=== PATIENT | male | born 1970 | race Caucasian/White ===

== ENCOUNTER 2017-12-12 05:56 | Outpatient (CLI) | payer SELFPAY ==
[~2017-12-12] VITALS: Ht 182.9 cm; Wt 117.9 kg
[2017-12-12] MEDS ORDERED: LEVO50TA6 PO (14:20)
[2017-12-12] MEDS ORDERED: LORA-405 PO (14:20)
[2017-12-12] MEDS ORDERED: HYDR-756 PO (14:20)
== END 2017-12-12 14:22 ==
LOC: PREOP 05:56
PROVIDERS: ATTEND Surgery
DX: Z01.818 Encounter for other preprocedural examination (principal); K92.1 Melena; K21.9 Gastro-esophageal reflux disease without esophagitis

== ENCOUNTER 2017-12-17 07:24 | Day surgery (SDC) | payer SELFPAY ==
[~2017-12-17] VITALS: Ht 182.9 cm; Wt 117.9 kg
[~2017-12-17 07:24] MED LIST: HYDR-756 PO; LEVO50TA6 PO; LORA-405 PO
[2017-12-17] MEDS ORDERED: LACTATED RINGERS 1,000 ML IV STA (07:35)
[2017-12-17 07:44] VITALS: BP 136/92
[2017-12-17] MEDS ORDERED: HURRICAINE EXT TUBE (BENZOCAINE) XX PRN (07:45)
[2017-12-17] MEDS ORDERED: PROPOFOL INJECTION 50 ML IV ONE (07:55)
[2017-12-17] MEDS ORDERED: MIDAZOLAM 2 MG/2 ML (VERSED) VIAL ONE (07:55)
--- NOTE | 2017-12-17 08:23 | Progress Note-Pre Operative ---
Pre-Operative Progress Note H&P Reviewed The H&P was reviewed, patient examined and no changes noted. Date Seen by Provider: Dec 17, 2017 Time Seen by Provider: 08:22 Date H&P Reviewed: Dec 17, 2017 Time H&P Reviewed: 08:22 Pre-Operative Diagnosis: family history colon cancer, bright red blood per rectum, reflux gastritis EBONI ARELLANO DO Dec 17, 2017 08:23
[2017-12-17] MEDS ORDERED: MIDAZOLAM 5 MG/5 ML (VERSED) VIAL ONE (09:43)
[2017-12-17] MEDS ORDERED: MIDAZOLAM 5 MG/5 ML (VERSED) VIAL IVP PRN (09:45)
[2017-12-17] MEDS ORDERED: proPOfol 200 MG/20 ML (DIPRIVAN) VIAL IV ONE (09:50)
[2017-12-17] MEDS ORDERED: RT-ALBUTEROL SULF 2.5 MG/3 ML PRE-MIX VIAL ONE (09:55)
--- NOTE | 2017-12-17 10:43 | Progress Note-Post Operative ---
Post-Operative Progess Note Surgeon (s)/Concrete Craftsman (s) Surgeon EBONI ARELLANO DO Concrete Craftsman: na Pre-Operative Diagnosis family history colon cancer, bright red blood per rectum, reflux gastritis Post-Operative Diagnosis duodenitis, gastritis, hiatal hernia, small antral ulcer, short segment lopez's descending colon polyp and rectal polyp Procedure & Operative Findings Date of Procedure 12/17/17 Procedure Performed/Findings egd c biopsies and colonoscopy with hot bx polypectomy x 2 Anesthesia Type per wool brusher Estimated Blood Loss Estimated blood loss (mL): none Specimens/Packing Specimens Removed antrum body and ge colon polyps EBONI ARELLANO DO Dec 17, 2017 10:43
[2017-12-17] MEDS ORDERED: PANT40TA2 PO ×2 (10:44→10:45)
--- NOTE | 2017-12-17 10:45 | Discharge Inst-Simple/Standard ---
Discharge Inst-Standard Discharge Medications New, Converted or Re-Newed RX: Transmitted to Pharmacy Patient Instructions/Follow Up Plan of Care/Instructions/FU: 2 weeks [place] Activity as Tolerated: Yes Discharge Diet: Regular Diet EBONI ARELLANO DO Dec 17, 2017 10:45
[2017-12-17 11:00] VITALS: BP 111/79
[2017-12-17 11:25] VITALS: BP 115/82
[2017-12-17 11:43] VITALS: BP 115/82
[2017-12-17] MEDS ORDERED: HURRICAINE EXT TUBE (BENZOCAINE) ONE (12:15)
--- NOTE | 2017-12-17 15:22 | OPERATIVE REPORT ---
DATE OF SERVICE: 12/17/2017 PREOPERATIVE DIAGNOSES: Family history of colon cancer, bright red blood per rectum, reflux gastritis. POSTOPERATIVE DIAGNOSES: Duodenitis, gastritis, hiatal hernia, small antral ulcer, short segment Panda's, descending colon polyp and rectal polyp. PROCEDURE: EGD with biopsies and colonoscopy with hot biopsy polypectomy x2. SURGEON: Eboni Cain DO ANESTHESIA: Per ROOMING HOUSE OPERATOR. ESTIMATED BLOOD LOSS: None. SPECIMENS: Antrum, body, GE and colon polyps. INDICATIONS: The patient is a 47-year-old male with family history of colon cancer, bright red blood per rectum and reflux gastritis. He was explained risks and benefits of procedure and wished to proceed with procedure. Consent was signed in the chart. DESCRIPTION OF PROCEDURE: The patient was taken to the endoscopy suite, placed in left lateral recumbent position. Timeout was performed. The scope was inserted in mouth, down the esophagus, stomach and into the duodenum. The duodenum had a significant erythematous changes present. The patient began to desaturate therefore, the scope had to be removed. Once adequate oxygenation occurred again, the scope was then reinserted in mouth, down the esophagus and into the stomach and into the duodenum. There were no polyps, masses or ulcerations visualized within the duodenum. There was significant erythematous changes thought consistent with duodenitis. The scope was retracted back into the stomach, where biopsy of the antrum was obtained. The stomach had slight erythematous changes diffusely. Biopsy of the antrum and GE junction were obtained. In the antrum, there is a small ulceration too that was present a small and biopsy had been obtained too. The scope was retroflexed noting a small hiatal hernia. No other pathology noted. The scope was then slowly withdrawn back into the GE junction where there are some erythematous changes and may be the appearance of a short segment of Panda's. Biopsies were obtained. Scope was then slowly retracted back noting no other pathology. Digital rectal exam was performed. A small external hemorrhoid present. Digital rectal exam, no palpable polyps, masses or ulcerations. The scope was inserted into the rectum and advanced all the way to the cecum with minimal difficulty. Prep was adequate. Scope was then slowly retracted back. There were no polyps, masses or ulcerations within the cecum, ascending, transverse colon. Within the descending colon, a small polyp was present, which hot biopsy polypectomy was performed. Scope was continued slowly retracted back into the sigmoid. There were no polyps, mass or ulcerations. In the rectum, another small polyp was present, which hot biopsy polypectomy was performed. Scope was also retroflexed noting no other pathology. Scope was returned to its normal position, slowly withdrawn until completely removed. RECOMMENDATIONS: The patient will follow up in 2 weeks. The patient will be started on Protonix 40 mg daily. We would recommend repeat colonoscopy in 3 years for reevaluation. If he has any of this symptoms before that I would reevaluate at that time. Job ID: [id number] DocumentID: [id number] Dictated Date: 12/17/2017 10:43:51 Contract Officer Date: 12/17/2017 15:21:56 Dictated By: EBONI CAIN DO
--- OUTSIDE RECORDS SUMMARY | 2017-12-19 13:23 | XMS REPORT ---
Author Author ABHINAV MICHEL Organization [employer] Address Unknown Phone Unavailable Care Team Providers Care Dietary Aide Name Role Phone ABHINAV MICHEL CP Unavailable Allergies No Known Allergies Problems Problem Type Condition Code Onset Dates Condition Status Problem Acute suppurative otitis media without spontaneous rupture of eardrum 382.00 Active Problem Unspecified dermatitis due to sun 692.70 Active Problem Other malaise and fatigue 780.79 Active Problem Acquired hypothyroidism E03.9 Active Problem Anxiety F41.9 Active Problem Chronic pain syndrome G89.4 Active Problem Health examination of defined subpopulation V70.5 Active Problem Dizziness and giddiness 780.4 Active Problem Hypertension 401.9 Active Problem Need for prophylactic vaccination and inoculation, Influenza V04.81 Active Medications No Known Medications Results No Known Results Summary Purpose [employer] Submission
--- OUTSIDE RECORDS SUMMARY | 2017-12-19 13:23 | XMS REPORT ---
Author Author ABHINAV MICHEL [facility] Address [address] [place] [address] Care Team Providers Care Head Cd Reactor Operator Name Role Phone MARILU ABHINAV Unavailable PROBLEMS Type Condition ICD9-CM Code [id number] Code Onset Dates Condition Status SNOMED Code Problem Acute suppurative otitis media without spontaneous rupture of eardrum 382.00 Active 59110357 Problem Unspecified dermatitis due to sun 692.70 Active 73396017 Problem Other malaise and fatigue 780.79 Active 364602327 Assessment Acquired hypothyroidism E03.9 Jul, Active 614702486 Problem Acquired hypothyroidism E03.9 Active 145280714 Problem Anxiety F41.9 Active 06749964 Problem Health examination of defined subpopulation V70.5 Active 380652241 Problem Dizziness and giddiness 780.4 Active 274314163 Problem Hypertension 401.9 Active 13946814 Problem Need for prophylactic vaccination and inoculation, Influenza V04.81 Active 509317290 ALLERGIES Unknown Allergies SOCIAL HISTORY No smoking Hx information available PLAN OF CARE VITAL SIGNS MEDICATIONS Unknown Medications RESULTS No Results PROCEDURES No Known procedures IMMUNIZATIONS No Known Immunizations
--- OUTSIDE RECORDS SUMMARY | 2017-12-19 13:24 | XMS REPORT ---
Author Author JULIUS MICHAEL Organization [facility] Address [address] [place] [address] Care Team Providers Care File Clerk Data Entry Name Role Phone JULIUS MICHAEL Unavailable PROBLEMS Type Condition ICD9-CM Code [id number] Code Onset Dates Condition Status SNOMED Code Problem Hypothyroidism (acquired) E03.9 Active 80663836 Problem Chronic pain syndrome G89.4 Active 316550555 Problem Anxiety F41.9 Active 46064212 Problem Acquired hypothyroidism E03.9 Active 357229770 ALLERGIES Substance Reaction Event Type Date Status N.K.D.A. Unknown Non Drug Allergy Nov, Unknown SOCIAL HISTORY No smoking Hx information available PLAN OF CARE Activity Details Follow Up prn Reason:te VITAL SIGNS MEDICATIONS Medication Instructions Dosage Frequency Start Date End Date Duration Status [place] 5-325 MG Orally every 6 hrs 1 tablet as needed 6h Nov, 28 days Active Ativan 0.5 MG Orally every 6 hrs 1 tablet as needed 6h Aug, 28 days Active Levothyroxine Sodium 25 MCG Orally Once a day 1 tablet on an empty stomach in the morning 24h 30 Active Cetirizine HCl 10 mg Orally Once a day 1 tablet 24h Jun, Dec, 30 day(s) Active RESULTS No Results PROCEDURES Procedure Date Ordered Related Diagnosis Body Site INTRAORL-PERIAPICAL 1 FILM 72792 Nov 12, 2016 INTRAORL-PERIAPICAL EA ADD FILM Nov 12, 2016 INTRAORL-PERIAPICAL EA ADD FILM Nov 12, 2016 INTRAORL-PERIAPICAL EA ADD FILM Nov 12, 2016 PANORAMIC FILM SEE ALSO CODE 41662 Nov 12, 2016 BITEWINGS - FOUR FILMS Nov 12, 2016 IMMUNIZATIONS No Known Immunizations
--- OUTSIDE RECORDS SUMMARY | 2017-12-19 13:24 | XMS REPORT ---
Author Author ABHINAV MICHEL Organization [employer] Address Unknown Phone Unavailable Care Team Providers Care Atomic Process Engineer Name Role Phone ABHINAV MICHEL CP Unavailable Allergies No Known Allergies Problems Problem Type Condition Code Onset Dates Condition Status Problem Need for prophylactic vaccination and inoculation, Influenza V04.81 Active Problem Health examination of defined subpopulation V70.5 Active Problem Hypertension 401.9 Active Problem Other malaise and fatigue 780.79 Active Problem Acute suppurative otitis media without spontaneous rupture of eardrum 382.00 Active Problem Dizziness and giddiness 780.4 Active Problem Unspecified dermatitis due to sun 692.70 Active Medications No Known Medications Results No Known Results Summary Purpose [employer] Submission
--- OUTSIDE RECORDS SUMMARY | 2017-12-19 13:24 | XMS REPORT ---
Author Author CHRIS Magallanes [facility] Address Unknown Care Team Providers Care Soaker Helper Name Role Phone CHRIS Magallanes Unavailable PROBLEMS Type Condition ICD9-CM Code [id number] Code Onset Dates Condition Status SNOMED Code Problem Hypothyroidism (acquired) E03.9 Active 19285343 Problem Chronic pain syndrome G89.4 Active 204568191 Problem Acquired hypothyroidism E03.9 Active 932624923 Problem Anxiety F41.9 Active 72216289 ALLERGIES Substance Reaction Event Type Date Status N.K.D.A. Unknown Non Drug Allergy Sep, Unknown SOCIAL HISTORY No smoking Hx information available PLAN OF CARE Activity Details Follow Up prn Reason:paolo/hygiene VITAL SIGNS Height 71 in 2016-09-26 Blood pressure systolic 129 mmHg 2016-09-26 Blood pressure diastolic 80 mmHg 2016-09-26 MEDICATIONS Medication Instructions Dosage Frequency Start Date End Date Duration Status Ativan 0.5 MG Orally every 6 hrs 1 tablet as needed 6h 13 Aug, 2016 Active [place] 5-325 MG Orally every 6 hrs 1 tablet as needed 6h 12 Jul, 2016 Active Cetirizine HCl 10 mg Orally Once a day 1 tablet 24h Jun, 4 Dec, 2016 30 day(s) Active Levothyroxine Sodium 25 MCG Orally Once a day 1 tablet on an empty stomach in the morning 24h 30 Active RESULTS No Results PROCEDURES Procedure Date Ordered Related Diagnosis Body Site LTD ORAL EVALUATION - PROBLEM FOCUS Sep 26, 2016 INTRAORL-PERIAPICAL 1 FILM 04494 Sep 26, 2016 EXTRAC ERUPTED TOOTH/EXPOSED ROOT Sep 26, 2016 IMMUNIZATIONS No Known Immunizations
--- OUTSIDE RECORDS SUMMARY | 2017-12-19 13:24 | XMS REPORT ---
Author Author ABHINAV MICHEL [facility] [employer] Address Unknown Phone Unavailable Care Team Providers Care Tile Sorter Name Role Phone ABHINAV MICHEL CP Unavailable Allergies, Adverse Reactions, Alerts Substance Reaction Event Type N.K.D.A. Info Not Available Non Drug Allergy Problems Problem Type Condition Code Onset Dates Condition Status Assessment Encounter for pre-employment examination Z02.1 Active Problem Need for prophylactic vaccination and inoculation, Influenza V04.81 Active Problem Health examination of defined subpopulation V70.5 Active Problem Hypertension 401.9 Active Problem Other malaise and fatigue 780.79 Active Problem Acute suppurative otitis media without spontaneous rupture of eardrum 382.00 Active Problem Dizziness and giddiness 780.4 Active Problem Unspecified dermatitis due to sun 692.70 Active Medications Medication Code System Code Instructions Start Date End Date Status Dosage Diclofenac Sodium [facility] [address]-21 75 MG Orally Twice a day Jul 13, 2015 1 tablet Omeprazole [facility] [address]-58 20 MG Orally Once a day Sep 02, 2015 1 capsule Lexapro [facility] 31063467450 10 MG Orally Once a day 1 tablet Procedures Procedure Coding System Code Date Office Visit, Est Pt., Level 3 CPT-4 42756 Sep 12, 2015 URINALYSIS, AUTO, W/O SCOPE CPT-4 46034 Sep 12, 2015 Vital Signs Date/Time: Sep 12, 2015 Temperature 98.3 F Weight 260.2 lbs Height 71 in BMI 36.29 Index Blood Pressure Diastolic 84 mmHg Blood Pressure Systolic 122 mmHg Cardiac Monitoring Heart Rate 104 bpm Results Name Result Date Reference Range Unit Abnormality Flag UA LONG DIP (IN HOUSE) Summary Purpose [employer]ClinicalWorks Submission
--- OUTSIDE RECORDS SUMMARY | 2017-12-19 13:24 | XMS REPORT ---
Author Author ABHINAV MICHEL [facility] Address [facility] [place] [address] Care Team Providers Care Engineer Exhauster Name Role Phone ABHINAV MICHEL Unavailable PROBLEMS Type Condition ICD9-CM Code EOK29-VW Code Onset Dates Condition Status SNOMED Code Problem Hypothyroidism (acquired) E03.9 Active 27652150 Problem Chronic pain syndrome G89.4 Active 913621208 Problem Anxiety F41.9 Active 09540081 Problem Acquired hypothyroidism E03.9 Active 046483105 ALLERGIES Unknown Allergies SOCIAL HISTORY No smoking Hx information available PLAN OF CARE VITAL SIGNS MEDICATIONS Medication Instructions Dosage Frequency Start Date End Date Duration Status [place] 5-325 MG Orally every 6 hrs 1 tablet as needed 6h Nov, 28 days Active Ativan 0.5 MG Orally every 6 hrs 1 tablet as needed 6h Aug, 28 days Active RESULTS No Results PROCEDURES No Known procedures IMMUNIZATIONS No Known Immunizations
--- OUTSIDE RECORDS SUMMARY | 2017-12-19 13:24 | XMS REPORT ---
Author Author ABHINAV MICHEL [facility] e[employer] Address Unknown Phone Unavailable Care Team Providers Care Environmental Consultant Name Role Phone ABHINAV MICHEL CP Unavailable Allergies, Adverse Reactions, Alerts Substance Reaction Event Type N.K.D.A. Info Not Available Non Drug Allergy Problems Problem Type Condition Code Onset Dates Condition Status Assessment Acquired hypothyroidism E03.9 Active Problem Other malaise and fatigue 780.79 Active Problem Acute suppurative otitis media without spontaneous rupture of eardrum 382.00 Active Assessment Encounter for immunization Z23 Active Assessment Anxiety F41.9 Active Problem Anxiety F41.9 Active Problem Hypertension 401.9 Active Problem Acquired hypothyroidism E03.9 Active Problem Dizziness and giddiness 780.4 Active Problem Unspecified dermatitis due to sun 692.70 Active Problem Need for prophylactic vaccination and inoculation, Influenza V04.81 Active Problem Health examination of defined subpopulation V70.5 Active Medications Medication Code System Code Instructions Start Date End Date Status Dosage [place] [facility] [address]-10 5-325 MG Orally every 6 hrs Jul 16, 2016 1 tablet as needed Cetirizine HCl [facility] [address]-37 10 mg Orally Once a day Jun 11, 2016 Dec 08, 2016 1 tablet Ativan [facility] [address]-04 0.5 MG Orally every 6 hrs Aug 16, 2016 1 tablet as needed Levothyroxine Sodium [facility] [address]-21 25 MCG Orally Once a day Jul 16, 2016 1 tablet on an empty stomach in the morning Procedures Procedure Coding System Code Date FLUZONE HIGH DOSE 65 AND UP 2015 CPT-4 27461 Aug 16, 2016 SINGLE IMMUNIZATION ADMIN CPT-4 27787 Aug 16, 2016 Office Visit, Est Pt., Level 3 CPT-4 41012 Aug 16, 2016 VENIPUNCT, ROUTINE* CPT-4 60830 Aug 16, 2016 ASSAY THYROID STIM HORMONE CPT-4 15034 Aug 16, 2016 Vital Signs Date/Time: Aug 16, 2016 Cardiac Monitoring Heart Rate 70 bpm Weight 248.6 lbs Height 71 in BMI 34.67 Index Blood Pressure Diastolic 86 mmHg Blood Pressure Systolic 120 mmHg Results Name Result Date Reference Range Unit Abnormality Flag ROUTINE VENIPUNCTURE Immunizations Vaccine Administration Date FLUZONE HIGH DOSE 65 AND UP 2015Aug 16, 2016 Summary Purpose eClinicalWorks Submission
--- OUTSIDE RECORDS SUMMARY | 2017-12-19 13:24 | XMS REPORT ---
Author Author ABHINAV MICHEL Organization [employer] Address Unknown Phone Unavailable Care Team Providers Care Ichthyology Teacher Name Role Phone ABHINAV MICHEL CP Unavailable Allergies No Known Allergies Problems Problem Type Condition Code Onset Dates Condition Status Problem Acute suppurative otitis media without spontaneous rupture of eardrum 382.00 Active Problem Unspecified dermatitis due to sun 692.70 Active Problem Other malaise and fatigue 780.79 Active Assessment Anxiety F41.9 Active Assessment Chronic pain syndrome G89.4 Active Problem Acquired hypothyroidism E03.9 Active Problem Anxiety F41.9 Active Problem Chronic pain syndrome G89.4 Active Problem Health examination of defined subpopulation V70.5 Active Problem Dizziness and giddiness 780.4 Active Problem Hypertension 401.9 Active Problem Need for prophylactic vaccination and inoculation, Influenza V04.81 Active Medications Medication Code System Code Instructions Start Date End Date Status Dosage Ativan [facility] [address]-87 0.5 MG Orally every 6 hrs Aug 16, 2016 1 tablet as needed [place] [facility] [address]-76 5-325 MG Orally every 6 hrs Jul 16, 2016 1 tablet as needed Cetirizine HCl [facility] [address]-94 10 mg Orally Once a day Jun 11, 2016 Dec 08, 2016 1 tablet Levothyroxine Sodium [facility] 87870796549 25 MCG Orally Once a day 1 tablet on an empty stomach in the morning Results No Known Results Summary Purpose eClinicalWorks Submission
--- OUTSIDE RECORDS SUMMARY | 2017-12-19 13:24 | XMS REPORT ---
Author Author ABHINAV MICHEL [facility] Address [address] [place] [address] Care Team Providers Care Skidder Loader Name Role Phone ABHINAV MICHEL Unavailable PROBLEMS Type Condition ICD9-CM Code FLB87-HL Code Onset Dates Condition Status SNOMED Code Problem Hypothyroidism (acquired) E03.9 Active 65938749 Problem Chronic pain syndrome G89.4 Active 043444184 Problem Anxiety F41.9 Active 72843474 Problem Acquired hypothyroidism E03.9 Active 591951842 ALLERGIES No Known Allergies SOCIAL HISTORY Never Assessed PLAN OF CARE VITAL SIGNS Height 71 in 2017-01-04 Weight 254.5 lbs 2017-01-04 Temperature 98.0 degrees Fahrenheit 2017-01-04 Heart Rate 80 bpm 2017-01-04 Respiratory Rate 20 2017-01-04 BMI 35.49 kg/m2 2017-01-04 Blood pressure systolic 122 mmHg 2017-01-04 Blood pressure diastolic 78 mmHg 2017-01-04 MEDICATIONS Medication Instructions Dosage Frequency Start Date End Date Duration Status Ativan 1 MG Orally every 6 hrs 1 tablet as needed 6h Aug, 28 days Active [place] 5-325 MG Orally every 6 hrs 1 tablet as needed 6h Jan, 28 days Active Levothyroxine Sodium 25 MCG Orally Once a day 1 tablet on an empty stomach in the morning 24h 30 Active RESULTS No Results PROCEDURES No Known procedures IMMUNIZATIONS No Known Immunizations MEDICAL (GENERAL) HISTORY Type Description Date Medical History mild anxiety Surgical History appendectomy 1997 Hospitalization History surgery Hospitalization History dizziness due to inner ear infection
--- OUTSIDE RECORDS SUMMARY | 2017-12-19 13:24 | XMS REPORT ---
Author Author ABHINAV MICHEL [facility] Address [address] [place] [address] Care Team Providers Care Lump Room Supervisor Name Role Phone ABHINAV MICHEL Unavailable PROBLEMS Type Condition ICD9-CM Code CUY03-WP Code Onset Dates Condition Status SNOMED Code Assessment Allergic rhinitis, unspecified allergic rhinitis trigger, unspecified rhinitis seasonality J30.9 Jun, Active 87751602 Problem Acute suppurative otitis media without spontaneous rupture of eardrum 382.00 Active 58227341 Assessment OME (otitis media with effusion), bilateral H65.93 Jun, Active 10687134 Assessment Hyperglycemia R73.9 Jun, Active 68578371 Assessment Weight loss of more than 10% body weight R63.4 Jun, Active 872618613 Problem Hypertension 401.9 Active 30199772 Problem Need for prophylactic vaccination and inoculation, Influenza V04.81 Active 211180561 Problem Unspecified dermatitis due to sun 692.70 Active 47932017 Problem Other malaise and fatigue 780.79 Active 278749381 Problem Health examination of defined subpopulation V70.5 Active 325993441 Problem Dizziness and giddiness 780.4 Active 423325515 ALLERGIES Substance Reaction Event Type Date Status N.K.D.A. Unknown Non Drug Allergy Jun, Unknown SOCIAL HISTORY No smoking Hx information available PLAN OF CARE VITAL SIGNS Height 71 in 2016-06-11 Weight 250.2 lbs 2016-06-11 Heart Rate 72 bpm 2016-06-11 Respiratory Rate 18 2016-06-11 BMI 34.89 kg/m2 2016-06-11 Blood pressure systolic 132 mmHg 2016-06-11 Blood pressure diastolic 80 mmHg 2016-06-11 MEDICATIONS Medication Instructions Dosage Frequency Start Date End Date Duration Status Cetirizine HCl 10 mg Orally Once a day 1 tablet 24h Jun, Dec, 30 day(s) Active RESULTS Name Result Date Reference Range TSH 2016-06-11 TSH 6.170 0.450-4.500 CBC 2016-06-11 WBC 10.5 3.4-10.8 RBC 4.93 4.14-5.80 Hemoglobin 15.1 12.6-17.7 Hematocrit 45.2 37.5-51.0 MCV 92 79-97 MCH 30.6 26.6-33.0 MCHC 33.4 31.5-35.7 RDW 13.9 12.3-15.4 Platelets 250 150-379 Neutrophils 63 Lymphs 30 Monocytes 5 Eos 2 Basos 0 Immature Cells Neutrophils (Absolute) 6.6 1.4-7.0 Lymphs (Absolute) 3.1 0.7-3.1 Monocytes(Absolute) 0.5 0.1-0.9 Eos (Absolute) 0.2 0.0-0.4 Baso (Absolute) 0.0 0.0-0.2 Immature Granulocytes 0 Immature Grans (Abs) 0.0 0.0-0.1 [facility] Hematology Comments: LIPID PANEL 2016-06-11 Cholesterol, Total 201 100-199 Triglycerides 105 0-149 HDL Cholesterol 31 >39 VLDL Cholesterol David 21 5-40 LDL Cholesterol Calc 149 0-99 Comment: CMP 2016-06-11 Glucose, Serum 93 65-99 BUN 9 6-24 Creatinine, Serum 0.96 0.76-1.27 eGFR If NonAfricn Am 96 >59 eGFR If Africn Am 111 >59 BUN/Creatinine Ratio 9 9-20 Sodium, Serum 142 134-144 Potassium, Serum 4.4 3.5-5.2 Chloride, Serum 101 97-108 Carbon Dioxide, Total 25 18-29 Calcium, Serum 9.2 8.7-10.2 Protein, Total, Serum 7.2 6.0-8.5 Albumin, Serum 4.1 3.5-5.5 Globulin, Total 3.1 1.5-4.5 A/G Ratio 1.3 1.1-2.5 Bilirubin, Total 0.2 0.0-1.2 Alkaline Phosphatase, S 93 39-117 AST (SGOT) 16 0-40 ALT (SGPT) 26 0-44 A1C (IN HOUSE) 2016-06-11 A1C IN HOUSE 5.6 4.3 - 5.6 % Previous A1c Lot [id number] Exp date 10/2017 PROCEDURES Procedure Date Ordered Related Diagnosis Body Site GLYCATED HEMOGLOBIN TEST Jun 11, 2016 Office Visit, Est Pt., Level 3 Jun 11, 2016 VENIPUNCT, ROUTINE* Jun 11, 2016 COMPLETE CBC W/AUTO DIFF WBC Jun 11, 2016 ASSAY THYROID STIM HORMONE Jun 11, 2016 COMPREHEN METABOLIC PANEL Jun 11, 2016 LIPID PANEL Jun 11, 2016 IMMUNIZATIONS No Known Immunizations
--- OUTSIDE RECORDS SUMMARY | 2017-12-19 13:24 | XMS REPORT ---
Author Author ABHIANV MICHEL [facility] Address [facility] [place] [address] Care Team Providers Care Media Operator Name Role Phone ABHINAV MICHEL Unavailable PROBLEMS Type Condition ICD9-CM Code PVE73-GF Code Onset Dates Condition Status SNOMED Code Problem Hypothyroidism (acquired) E03.9 Active 25629042 Problem Chronic pain syndrome G89.4 Active 701620676 Problem Anxiety F41.9 Active 42448610 Problem Acquired hypothyroidism E03.9 Active 513661353 ALLERGIES Unknown Allergies SOCIAL HISTORY No smoking Hx information available PLAN OF CARE VITAL SIGNS MEDICATIONS Medication Instructions Dosage Frequency Start Date End Date Duration Status Ativan 0.5 MG Orally every 6 hrs 1 tablet as needed 6h Aug, 28 days Active [place] 5-325 MG Orally every 6 hrs 1 tablet as needed 6h Dec, 28 days Active RESULTS No Results PROCEDURES No Known procedures IMMUNIZATIONS No Known Immunizations
--- OUTSIDE RECORDS SUMMARY | 2017-12-19 13:24 | XMS REPORT ---
Author Author ABHINAV MICHEL Organization [employer] Address Unknown Phone Unavailable Care Team Providers Care Account Information Clerk Name Role Phone ABHINAV MICHEL CP Unavailable Allergies, Adverse Reactions, Alerts Substance Reaction Event Type N.K.D.A. Info Not Available Non Drug Allergy Problems Problem Type Condition ICD-9 Code Onset Dates Condition Status Assessment Knee pain 719.46 Active Assessment Mood disorder 296.90 Active Assessment Back pain 724.5 Active Problem Need for prophylactic vaccination and [...] Instructions Start Date End Date Status Dosage Lexapro [facility] 84932487920 10 MG Orally Once a day 1 tablet Diclofenac Sodium [facility] [address]-65 75 MG Orally Twice a day Jul 13, 2015 1 tablet Procedures Procedure Coding System Code Date Office Visit, Est Pt., Level 3 CPT-4 07560 Jul 13, 2015 Vital Signs Date/Time: Jul 13, 2015 Temperature 97.4 F Weight 259.3 lbs Height 71 in BMI 36.16 Index Blood Pressure Diastolic 84 mmHg Blood Pressure Systolic 128 mmHg Cardiac Monitoring Heart Rate 80 bpm Results No Known Results Summary Purpose [employer] Submission
--- OUTSIDE RECORDS SUMMARY | 2017-12-19 13:24 | XMS REPORT ---
Author Author ABHINAV MICHEL [facility] Address [address] [place] [address] Care Team Providers Care Press Service Reader Name Role Phone ABHINAV MICHEL Unavailable PROBLEMS Type Condition ICD9-CM Code [id number] Code Onset Dates Condition Status SNOMED Code Problem Hypothyroidism (acquired) E03.9 Active 94090091 Problem Chronic pain syndrome G89.4 Active 876054719 Problem Anxiety F41.9 Active 54301725 Problem Acquired hypothyroidism E03.9 Active 710724395 ALLERGIES No Information SOCIAL HISTORY Never Assessed PLAN OF CARE VITAL SIGNS MEDICATIONS Medication Instructions Dosage Frequency Start Date End Date Duration Status Douglas 5-325 MG Orally every 6 hrs 1 tablet as needed 6h March, 28 days Active Ativan 1 MG Orally every 6 hrs 1 tablet as needed 6h Aug, 28 days Active RESULTS No Results PROCEDURES No Known procedures IMMUNIZATIONS No Known Immunizations MEDICAL (GENERAL) HISTORY Type Description Date Medical History mild anxiety Surgical History appendectomy 1997 Hospitalization History surgery Hospitalization History dizziness due to inner ear infection
--- OUTSIDE RECORDS SUMMARY | 2017-12-19 13:24 | XMS REPORT ---
Author Author ABHINAV MICHEL Organization [employer] Address Unknown Phone Unavailable Care Team Providers Care Dockworker Name Role Phone ABHINAV MICHEL CP Unavailable [...]
--- OUTSIDE RECORDS SUMMARY | 2017-12-19 13:24 | XMS REPORT ---
Author Author CHRIS VALADEZ [facility] [employer] Address Unknown Phone Unavailable Care Team Providers Care Funeral Home Associate Name Role Phone CHRIS VALADEZ CP Unavailable Allergies No Known Allergies Problems [...]
--- OUTSIDE RECORDS SUMMARY | 2017-12-19 13:24 | XMS REPORT ---
Author Author ABHINAV MICHEL [facility] e[employer] Address Unknown Phone Unavailable Care Team Providers Care Route Cdl Driver Name Role Phone ABHINAV MICHEL CP Unavailable Allergies No Known Allergies Problems Problem Type Condition Code Onset Dates Condition Status Assessment Encounter for immunization Z23 Active Problem Need for prophylactic vaccination and inoculation, Influenza V04.81 Active Problem Health examination of defined subpopulation V70.5 Active Problem Hypertension 401.9 Active Problem Other malaise and fatigue 780.79 Active Problem Acute suppurative otitis media without spontaneous rupture of eardrum 382.00 Active Problem Dizziness and giddiness 780.4 Active Problem Unspecified dermatitis due to sun 692.70 Active Medications No Known Medications Procedures Procedure Coding System Code Date SINGLE IMMUNIZATION ADMIN CPT-4 68700 Sep 03, 2015 FLUARIX QUAD (3 & UP)-GSK-2014 CPT-4 23715 Sep 03, 2015 Results No Known Results Immunizations Vaccine Administration Date FLUARIX QUAD (3 & UP)-GSK-2014Sep 03, 2015 Summary Purpose [employer] Submission
--- OUTSIDE RECORDS SUMMARY | 2017-12-19 13:24 | XMS REPORT ---
Author Author ABHINAV MICHEL Organization [employer] Address Unknown Phone Unavailable Care Team Providers Care Screen Cleaner Name Role Phone ABHINAV MICHEL CP Unavailable [...] Instructions Start Date End Date Status Dosage Omeprazole [facility] [address]-60 20 MG Orally Once a day Sep 02, 2015 1 capsule Results No Known Results Summary Purpose [employer]Works Submission
--- OUTSIDE RECORDS SUMMARY | 2017-12-19 13:25 | XMS REPORT | Continuity of Care Document ---
Author Author [facility] Address Unknown Phone Unavailable Allergies There is no data. Medications There is no data. Problems Date Dx Coded Attending Type Code Diagnosis Diagnosed By 06/27/2009 ABHINAV MICHEL APRN 788.1 DYSURIA 06/27/2009 ABHINAV MICHEL APRN 788.1 DYSURIA 06/27/2009 NEY JONES DO 788.1 DYSURIA 06/27/2009 788.1 DYSURIA 06/27/2009 ABHINAV MICHEL APRN 788.1 DYSURIA 06/27/2009 MELVIN TATE MD 788.1 DYSURIA 09/19/2009 ABHINAV MICHEL APRN V70.4 EXAMINATION FOR MEDICOLEGAL REASONS 09/19/2009 ABHINAV MICHEL APRN V70.4 EXAMINATION FOR MEDICOLEGAL REASONS 09/19/2009 NEY JONES DO V70.4 EXAMINATION FOR MEDICOLEGAL REASONS 09/19/2009 V70.4 EXAMINATION FOR MEDICOLEGAL REASONS 09/19/2009 ABHINAV MICHEL APRN V70.4 EXAMINATION FOR MEDICOLEGAL REASONS 09/19/2009 MELVIN TATE MD V70.4 EXAMINATION FOR MEDICOLEGAL REASONS 08/02/2010 ABHINAV MICHEL APRN 724.2 LUMBAGO 08/02/2010 ABHINAV MICHEL APRN 724.2 LUMBAGO 08/02/2010 NEY JONES DO 724.2 LUMBAGO 08/02/2010 724.2 LUMBAGO 08/02/2010 ABHINAV MICHEL APRN 724.2 LUMBAGO 08/02/2010 MELVIN TATE MD 724.2 LUMBAGO 07/18/2011 ABHINAV MICHEL APRN 535.50 GASTRITIS UNSPEC 07/18/2011 ABHINAV MICHEL APRN 786.50 CHEST PAIN 07/18/2011 ABHINAV MICHEL APRN 535.50 GASTRITIS UNSPEC 07/18/2011 ABHINAV MICHEL APRN 786.50 CHEST PAIN 07/18/2011 NEY JONES DO 535.50 GASTRITIS UNSPEC 07/18/2011 NEY JONES DO K 786.50 CHEST PAIN 07/18/2011 535.50 GASTRITIS UNSPEC 07/18/2011 786.50 CHEST PAIN 07/18/2011 ABHINAV MICHEL APRN 535.50 GASTRITIS UNSPEC 07/18/2011 ABHINAV MICHEL APRN 786.50 CHEST PAIN 07/18/2011 MELVIN TATE MD 535.50 GASTRITIS UNSPEC 07/18/2011 MELVIN TATE MD 786.50 CHEST PAIN 09/12/2011 ABHINAV MICHEL APRN 785.9 CAROTID BRUIT 09/12/2011 ABHINAV MICHEL APRN 785.9 CAROTID BRUIT 09/12/2011 NEY JONES DO 785.9 CAROTID BRUIT 09/12/2011 785.9 CAROTID BRUIT 09/12/2011 ABHINAV MICHEL APRN 785.9 CAROTID BRUIT 09/12/2011 MELVIN TATE MD 785.9 CAROTID BRUIT 10/16/2011 ABHINAV MICHEL APRN 214.1 LIPOMA OF OTHER SKIN AND SUBCUTANEOUS TISSUE 10/16/2011 ABHINAV MICHEL APRN 214.1 LIPOMA OF OTHER SKIN AND SUBCUTANEOUS TISSUE 10/16/2011 NEY JONES DO 214.1 LIPOMA OF OTHER SKIN AND SUBCUTANEOUS TISSUE 10/16/2011 214.1 LIPOMA OF OTHER SKIN AND SUBCUTANEOUS TISSUE 10/16/2011 ABHINAV MICHEL APRN 214.1 LIPOMA OF OTHER SKIN AND SUBCUTANEOUS TISSUE 10/16/2011 MELVIN TATE MD 214.1 LIPOMA OF OTHER SKIN AND SUBCUTANEOUS TISSUE 10/23/2011 ABHINAV MICHEL APRN V58.32 SUTURE REMOVAL 10/23/2011 ABHINAV MICHEL APRN V58.32 SUTURE REMOVAL 10/23/2011 NEY JONES DO V58.32 SUTURE REMOVAL 10/23/2011 V58.32 SUTURE REMOVAL 10/23/2011 ABHINAV MICHEL APRN V58.32 SUTURE REMOVAL 10/23/2011 MELVIN TATE MD V58.32 SUTURE REMOVAL 10/31/2011 ABHINAV MICHEL APRN 354.0 CARPAL TUNNEL SYNDROME 10/31/2011 ABHINAV MICHEL APRN 354.0 CARPAL TUNNEL SYNDROME 10/31/2011 NEY JONES DO 354.0 CARPAL TUNNEL SYNDROME 10/31/2011 354.0 CARPAL TUNNEL SYNDROME 10/31/2011 ABHINAV MICHEL APRN 354.0 CARPAL TUNNEL SYNDROME 10/31/2011 MELVIN TATE MD 354.0 CARPAL TUNNEL SYNDROME 09/16/2012 ABHINAV MICHEL APRN 780.4 DIZZINESS AND VERTIGO 09/16/2012 ABHINAV MICHEL APRN 780.4 DIZZINESS AND VERTIGO 09/16/2012 NEY JONES DO 780.4 DIZZINESS AND VERTIGO 09/16/2012 780.4 DIZZINESS AND VERTIGO 09/16/2012 ABHINAV MICHEL APRN 780.4 DIZZINESS AND VERTIGO 09/16/2012 MELVIN TATE MD 780.4 DIZZINESS AND VERTIGO 10/01/2012 ABHINAV MICHEL APRN 382.00 OTITIS MEDIA ACUTE SUPPURATIVE 10/01/2012 ABHINAV MICHEL APRN 382.00 OTITIS MEDIA ACUTE SUPPURATIVE 10/01/2012 NEY JONES DO 382.00 OTITIS MEDIA ACUTE SUPPURATIVE 10/01/2012 382.00 OTITIS MEDIA ACUTE SUPPURATIVE 10/01/2012 ABHINAV MICHEL APRN 382.00 OTITIS MEDIA ACUTE SUPPURATIVE 10/01/2012 MELVIN TATE MD 382.00 OTITIS MEDIA ACUTE SUPPURATIVE 10/21/2012 NEY JONES DO 780.79 fatigue 10/21/2012 780.79 fatigue 10/21/2012 ABHINAV MICHEL APRN 780.79 fatigue 10/21/2012 MELVIN TATE MD 780.79 fatigue 04/20/2013 692.70 UNSPECIFIED DERMATITIS DUE TO 04/20/2013 ABHINAV MICHEL APRN 692.70 UNSPECIFIED DERMATITIS DUE TO 04/20/2013 MELVIN TATE MD 692.70 UNSPECIFIED DERMATITIS DUE TO 09/04/2013 ABHINAV MICHEL APRN V04.81 FLU SHOT 09/04/2013 ABHINAV MICHEL APRN V70.5 PREEMPLOYMENT/PRESCHOOL EXAM 09/04/2013 MELVIN TATE MD V04.81 FLU SHOT 09/04/2013 MELVIN TATE MD V70.5 PREEMPLOYMENT/PRESCHOOL EXAM Procedures Code [place] [address] CBC 10/09/2012 64327 CMP 10/09/2012 20366 LIPID PANEL 10/09/2012 [id number] GFR CALC (RESULT ONLY) 10/09/2012 34427 CRP HS (CARDIO) 10/10/2012 38360 TSH 10/10/2012 13616 BNP 10/10/2012 56151 EKG, TRACING (IN-HOUSE) 10/10/2012 86175 ROUTINE VENIPUNCTURE 10/21/2012 76436 A1C (IN-HOUSE) 10/21/2012 03148 XRAY CHEST 2 VIEW 10/27/2012 Cardiolog Al Hammer 10/27/2012 71909 T4 FREE 10/27/2012 72923 T3 TOTAL 10/27/2012 59604 UA LONG DIP 09/04/2013 84684 PURE TONE HEARING TEST AIR 09/04/2013 01489 ROUTINE VENIPUNCTURE 09/16/2013 57865 A1C (IN-HOUSE) 09/16/2013 [id number] GFR CALC (RESULT ONLY) 09/16/2013 39275 CMP 09/16/2013 93183 LIPID PANEL 09/16/2013 94853 CBC 09/16/2013 Results There is no data. Encounters ACCT No. Visit Date/Time Discharge Status Pt. Type Provider Facility Loc./Unit Complaint [id number] 09/16/2013 08:00:00 09/16/2013 23:59:59 CLS Outpatient MELVIN TATE MD [id number] 09/04/2013 09:28:00 09/04/2013 23:59:59 CLS Outpatient ABHINAV MICHEL APRN [id number] 10/27/2012 09:00:00 10/27/2012 23:59:59 CLS Outpatient NEY JONES DO [id number] 10/09/2012 08:26:00 10/09/2012 23:59:59 CLS Outpatient ABHINAV MICHEL APRN [id number] 09/16/2012 17:03:00 09/16/2012 23:59:59 CLS Outpatient ABHINAV MICHEL APRN [id number] 04/20/2013 13:04:00 Document Registration
== END 2017-12-17 11:35 | disposition home or self-care (01) ==
LOC: ENDO 07:24
PROVIDERS: ATTEND Surgery
DX: K62.5 Hemorrhage of anus and rectum (principal); D12.4 Benign neoplasm of descending colon; K62.1 Rectal polyp; K29.50 Unspecified chronic gastritis without bleeding; B96.81 Helicobacter pylori [H. pylori] as the cause of diseases classified elsewhere; K22.70 Barrett's esophagus without dysplasia; K44.9 Diaphragmatic hernia without obstruction or gangrene; K29.80 Duodenitis without bleeding; K25.9 Gastric ulcer, unspecified as acute or chronic, without hemorrhage or perforation; Z80.0 Family history of malignant neoplasm of digestive organs; F17.210 Nicotine dependence, cigarettes, uncomplicated; E03.9 Hypothyroidism, unspecified; Z79.899 Other long term (current) drug therapy
CPT/HCPCS: 94640

== ENCOUNTER 2018-01-14 16:35 | Outpatient (CLI) | payer OTHER ==
[~2018-01-14 16:35] MED LIST changes: +PANT40TA2 PO
== END 2018-01-14 17:10 | disposition home or self-care (01) ==
LOC: SLEEP 16:35
PROVIDERS: ATTEND Nurse Practitioner Family
DX: G47.33 Obstructive sleep apnea (adult) (pediatric) (principal); G47.10 Hypersomnia, unspecified; G47.50 Parasomnia, unspecified

== ENCOUNTER → 2018-02-10 | Outpatient (CLI) | payer OTHER ==
[~2018-02-10] MED LIST changes: +RT-ALBUTEROL SULF 2.5 MG/3 ML PRE-MIX VIAL INH ONE
== END ==
LOC: RT 09:16
PROVIDERS: ATTEND Nurse Practitioner Family
DX: R06.00 Dyspnea, unspecified (principal); Z72.0 Tobacco use
CPT/HCPCS: 94060; 94726; 94729

== ENCOUNTER 2020-10-31 05:27 | Outpatient (RCR) | payer BC, OTHER ==
[~2020-10-31] VITALS: Ht 182.9 cm; Wt 117.0 kg
[~2020-10-31 05:27] MED LIST changes: +CYCL10TA9 PO; +FLUT1DIS26 IH; +HYDR-4227 PO; -HYDR-756 PO; -RT-ALBUTEROL SULF 2.5 MG/3 ML PRE-MIX VIAL INH ONE
== END 2020-10-31 09:58 | disposition home or self-care (01) ==
LOC: PREOP 05:27
PROVIDERS: ATTEND Surgery
DX: Z01.812 Encounter for preprocedural laboratory examination (principal); Z80.0 Family history of malignant neoplasm of digestive organs; Z86.010 Personal history of colon polyps; Z20.828 Contact with and (suspected) exposure to other viral communicable diseases
CPT/HCPCS: 87635

== ENCOUNTER 2020-11-01 05:34 | Outpatient (RCR) | payer BC ==
[~2020-11-01] VITALS: Ht 182.9 cm; Wt 117.0 kg
[2020-11-01 11:19] LABS: BASOPHILS # (AUTO) 0.1 10^3/uL (0.0-0.1); BASOPHILS % (AUTO) 1 % (0-10); EOSINOPHILS # (AUTO) 0.1 10^3/uL (0.0-0.3); EOSINOPHILS % (AUTO) 1 % (0-10); HEMATOCRIT 50 % (40-54); HEMOGLOBIN 16.2 g/dL (13.3-17.7); LYMPHOCYTES # (AUTO) 2.1 10^3/uL (1.0-4.0); LYMPHOCYTES % (AUTO) 20 % (12-44); MEAN CORPUSCULAR HEMOGLOBIN 31 pg (25-34); MEAN CORPUSCULAR HGB CONC 33 g/dL (32-36); MEAN CORPUSCULAR VOLUME 96 fL (80-99); MEAN PLATELET VOLUME 10.7 fL (9.0-12.2); MONOCYTES # (AUTO) 0.5 10^3/uL (0.0-1.0); MONOCYTES % (AUTO) 5 % (0-12); NEUTROPHILS # (AUTO) 8.1 10^3/uL (1.8-7.8); NEUTROPHILS % (AUTO) 74 % (42-75); PLATELET COUNT 227 10^3/uL (130-400); WHITE BLOOD COUNT 10.8 10^3/uL (4.3-11.0)
[2020-11-01 11:29] LABS: BUN/CREATININE RATIO 13; CARBON DIOXIDE 28 MMOL/L (21-32); CHLORIDE 105 MMOL/L (98-107); GFR ESTIMATED > 60; GLUCOSE 101 MG/DL (70-105); SODIUM 140 MMOL/L (135-145)
== END 2020-11-01 12:54 | disposition home or self-care (01) ==
LOC: PREOP 05:34
PROVIDERS: ATTEND Otolaryngology Otolaryngology/Facial Plastic Surgery
DX: Z01.818 Encounter for other preprocedural examination (principal); H65.20 Chronic serous otitis media, unspecified ear; J34.89 Other specified disorders of nose and nasal sinuses
CPT/HCPCS: 36415; 80048; 85025; 87081; 93005

== ENCOUNTER 2020-11-01 10:33 | Day surgery (SDC) | payer BC, OTHER ==
[~2020-11-01] VITALS: Ht 183 cm; Wt 117.0 kg
[2020-11-01] MEDS ORDERED: LACTATED RINGERS 1,000 ML IV ONE (10:43)
[2020-11-01] MEDS ORDERED: LACTATED RINGERS 1,000 ML IV STA (10:49)
[2020-11-01 10:57] VITALS: BP 132/104
[2020-11-01] MEDS ORDERED: LACTATED RINGERS 1,000 ML IV SCH (11:00)
[2020-11-01] MEDS ORDERED: MIDAZOLAM 2 MG/2 ML (VERSED) VIAL ONE (14:18)
[2020-11-01] MEDS ORDERED: PROPOFOL INJECTION 50 ML IV ONE (14:18)
--- NOTE | 2020-11-01 14:26 | Progress Note-Pre Operative ---
Pre-Operative Progress Note H&P Reviewed The H&P was reviewed, patient examined and no changes noted. Date Seen by Provider: Nov 01, 2020 Time Seen by Provider: 14:25 Date H&P Reviewed: Nov 01, 2020 Time H&P Reviewed: 14:25 Pre-Operative Diagnosis: blood in stool, hx polyps EBONI ARELLANO DO Nov 01, 2020 14:26
--- NOTE | 2020-11-01 14:46 | Progress Note-Post Operative ---
Post-Operative Progess Note Surgeon (s)/Element Setter (s) Surgeon EBONI ARELLANO DO Element Setter: na Pre-Operative Diagnosis blood in stool, hx polyps Post-Operative Diagnosis internal hemorrhoid, colon polyps Procedure & Operative Findings Date of Procedure 11/01/20 Procedure Performed/Findings colonoscopy c hot bx polypectomy x 3 Anesthesia Type per nurse case management Estimated Blood Loss Estimated blood loss (mL): none Specimens/Packing Specimens Removed colon polyps EBONI ARELLANO DO Nov 01, 2020 14:46
--- NOTE | 2020-11-01 14:47 | Discharge Inst-Simple/Standard ---
Discharge Inst-Standard Patient Instructions/Follow Up Plan of Care/Instructions/FU: 2 weeks [place] Activity as Tolerated: Yes Discharge Diet: Regular Diet (high fiber) EBONI ARELLANO DO Nov 01, 2020 14:47
[2020-11-01 14:50] VITALS: BP 115/77
[2020-11-01 14:55] VITALS: BP 119/83
[2020-11-01 15:05] VITALS: BP 135/80
[2020-11-01 15:20] VITALS: BP 135/80
--- NOTE | 2020-11-01 22:47 | OPERATIVE REPORT ---
DATE OF SERVICE: 11/01/2020 PREOPERATIVE DIAGNOSES: Blood in stool, history of polyps. POSTOPERATIVE DIAGNOSES: Internal hemorrhoids, colon polyps. PROCEDURE: Colonoscopy with hot biopsy polypectomy x3. SURGEON: Eboni Cain DO ANESTHESIA: Per FIRER HELPER. ESTIMATED BLOOD LOSS: None. COMPLICATIONS: None. SPECIMENS: Colon polyps x3. INDICATIONS: The patient is a 49-year-old male with bright red bleeding per rectum. He understands risks and benefits of procedure and wished to proceed with procedure. Consent was signed on the chart. DESCRIPTION OF PROCEDURE: The patient was taken to the endoscopy suite, placed in left lower recumbent position. Timeout was performed. Digital rectal exam was performed. There were no palpable polyps, masses or ulcerations. A small external hemorrhoid and multiple large internal hemorrhoids. Scope was inserted in the rectum and advanced all the way to cecum with minimal difficulty. Prep was adequate. In the cecum was very small polyp was present, which hot biopsy polypectomy was performed. Scope was then slowly withdrawn. No polyps, masses or ulcerations within the ascending, transverse and descending colon. In the sigmoid colon, there were 2 small polyps, which hot biopsy polypectomy was performed. Scope was then continued to be slowly retracted back into the rectum, where it was also retroflexed noting internal hemorrhoidal disease. No other pathology. Scope was returned to its normal position, slowly withdrawn until completely removed. The patient tolerated procedure well without any complications, taken to recovery room in stable condition. RECOMMENDATIONS: The patient would consider hemorrhoid energy therapy treatment for hemorrhoids. The patient will follow up on pathology in regards to the colon polypectomies. The patient will need repeat colonoscopy in 5 years. Any issues before that be seen at that time. Job ID: [id number] DocumentID: [id number] Dictated Date: 11/01/2020 14:50:35 Life Skills Educator Date: 11/01/2020 22:45:52 Dictated By: EBONI CAIN DO
== END 2020-11-01 15:20 | disposition home or self-care (01) ==
LOC: ENDO 10:33
PROVIDERS: ATTEND Surgery
DX: D12.5 Benign neoplasm of sigmoid colon (principal); K92.1 Melena; K64.8 Other hemorrhoids; J44.9 Chronic obstructive pulmonary disease, unspecified; F41.9 Anxiety disorder, unspecified; F32.9 Major depressive disorder, single episode, unspecified; K21.9 Gastro-esophageal reflux disease without esophagitis; M19.90 Unspecified osteoarthritis, unspecified site; G47.10 Hypersomnia, unspecified; G47.33 Obstructive sleep apnea (adult) (pediatric); K29.70 Gastritis, unspecified, without bleeding; Z79.899 Other long term (current) drug therapy; Z86.010 Personal history of colon polyps; Z80.0 Family history of malignant neoplasm of digestive organs
CPT/HCPCS: 88305

== ENCOUNTER 2020-11-03 06:21 | Day surgery (SDC) | payer BC, OTHER ==
[~2020-11-03] VITALS: Ht 182 cm; Wt 117.0 kg
[2020-11-03] VITALS (10 sets, daily range): BP systolic 102–140; BP diastolic 65–83
[2020-11-03] MEDS ORDERED: LACTATED RINGERS 1,000 ML IV PRN (06:30)
[2020-11-03] MEDS ORDERED: MIDAZOLAM 2 MG/2 ML (VERSED) VIAL ONE (07:02)
[2020-11-03] MEDS ORDERED: fentaNYL INJECTION 100 MCG/2 ML AMP ONE (07:03)
--- NOTE | 2020-11-03 07:04 | Progress Note-Pre Operative ---
Pre-Operative Progress Note H&P Reviewed The H&P was reviewed, patient examined and no changes noted. Date Seen by Provider: Nov 03, 2020 Time Seen by Provider: 06:45 Date H&P Reviewed: Nov 03, 2020 Time H&P Reviewed: 06:45 Pre-Operative Diagnosis: Nasopharyngeal MaSS, bILAT MARANDA Black MD Nov 03, 2020 07:04
[2020-11-03] MEDS ORDERED: proPOfol 200 MG/20 ML (DIPRIVAN) VIAL IV ONE (07:13)
[2020-11-03] MEDS ORDERED: NEOSTIGMINE 3 MG/3 ML VIAL ONE (07:13)
[2020-11-03] MEDS ORDERED: GLYCOPYRROLATE 0.2 MG/ML (ROBINUL) 2 ML VIAL ONE (07:13)
[2020-11-03] MEDS ORDERED: SEVOFLURANE (ULTANE) 15 ML INHAL SOLN ONE (07:13)
[2020-11-03] MEDS ORDERED: ROCURONIUM 10 MG/ML 5 ML SYRINGE IV ONE (07:13)
[2020-11-03] MEDS ORDERED: LIDOCAINE PF 2% 5 ML (XYLOCAINE) VIAL ONE (07:13)
[2020-11-03] MEDS ORDERED: ONDANSETRON 4 MG/2 ML (SDV) Z0FRAN ONE (07:13)
--- NOTE | 2020-11-03 08:18 | Progress Note-Post Operative ---
Post-Operative Progess Note Surgeon (s)/Back Sewer (s) Surgeon MARANDA URIOSTEGUI MD Back Sewer n/a Pre-Operative Diagnosis Nasopharyngeal MaSS, bILAT nam Post-Operative Diagnosis same Post-Op Procedure Note Date of Procedure: Nov 03, 2020 Name of Procedure Performed: BMT, Removal of Nasopharyngeal Mass Description & Findings Description and Findings: n/a Anesthesia Type get Estimated Blood Loss minimal Packing none. Specimen(s) collected/removed nasopharyngeal mass fresh to pathology MARANDA URIOSTEGUI MD Nov 03, 2020 08:18
[2020-11-03] MEDS ORDERED: RT-ALBUTEROL SULF 2.5 MG/3 ML PRE-MIX VIAL ONE (08:27)
[2020-11-03] MEDS ORDERED: D5 1/2 NS W/KCL 20 MEQ/L 1,000 ML IV SCH (08:30)
[2020-11-03] MEDS ORDERED: PROMETHAZINE INJ 25 MG/ML (PHENERGAN) AMP IVP PRN (08:30)
[2020-11-03] MEDS ORDERED: ACETAMINOPHEN 325 MG TABLET PO PRN (08:30)
[2020-11-03] MEDS ORDERED: HYDROcodone/APAP 5 MG/325 MG (LORTAB) TAB PO PRN (08:30)
[2020-11-03] MEDS ORDERED: ONDANSETRON 4 MG/2 ML (SDV) Z0FRAN IVP PRN (08:45)
[2020-11-03] MEDS ORDERED: RT-ALBUTEROL SULF 2.5 MG/3 ML PRE-MIX VIAL INH ONE (08:45)
[2020-11-03] MEDS ORDERED: morphine INJ 10 MG/ML 1ML (SYR OR VIAL) IVP ONE (08:45)
--- NOTE | 2020-11-03 08:50 | Anesthesia-General Post-Op ---
General Patient Condition Mental Status/LOC: Same as Preop Cardiovascular: Satisfactory Nausea/Vomiting: Absent Respiratory: Satisfactory Pain: Controlled Complications: Absent Post Op Complications Complications None Follow Up Care/Instructions Patient Instructions None needed. Anesthesia/Patient Condition Patient Condition Patient is doing well, has a mild sore throat which is to be expected, stable vital signs, no apparent adverse anesthesia problems. SHARON GUZMAN DO Nov 03, 2020 08:50
[2020-11-03] MEDS ORDERED: DEXT1DRO3 OP/OT (09:52)
[2020-11-03] MEDS ORDERED: AMOX500T2 PO (09:52)
[2020-11-03] MEDS ORDERED: ACHD5005 PO (09:52)
== END 2020-11-03 10:40 ==
LOC: SDC 06:21
PROVIDERS: ATTEND Otolaryngology Otolaryngology/Facial Plastic Surgery
DX: H65.23 Chronic serous otitis media, bilateral (principal); J39.2 Other diseases of pharynx; J44.9 Chronic obstructive pulmonary disease, unspecified; K21.9 Gastro-esophageal reflux disease without esophagitis; E03.9 Hypothyroidism, unspecified; M19.90 Unspecified osteoarthritis, unspecified site; E66.9 Obesity, unspecified; Z68.35 Body mass index [BMI] 35.0-35.9, adult; Z79.899 Other long term (current) drug therapy; Z79.51 Long term (current) use of inhaled steroids; Z83.3 Family history of diabetes mellitus; Z80.9 Family history of malignant neoplasm, unspecified; Z82.3 Family history of stroke
CPT/HCPCS: 88305; 88331

== ENCOUNTER → 2020-12-15 | Outpatient (CLI) | payer BC, OTHER ==
[~2020-12-15] MED LIST changes: +ACHD5005 PO; +AMOX500T2 PO; +DEXT1DRO3 OP/OT
--- NOTE | 2020-12-15 10:30 | Diagnostic Imaging Report ---
PROCEDURE: MRI lumbar spine. TECHNIQUE: Multiplanar, multisequence MRI of the lumbar spine was performed without contrast. INDICATION: Low back pain. COMPARISON: There are no prior studies available for comparison. FINDINGS: The reconstructed T2 parasagittal images show the vertebral body heights and alignment to be generally within normal limits. The intervertebral spaces are fairly well-maintained, although there is desiccation of the disc at every level. The thecal sac is generous. There is a slight disc bulge centrally at the L3-L4 level. The disc flattens the ventral aspect of the thecal sac and narrows the AP diameter to 14.2 mm. There are also minimal disc bulges at L2-L3, L4-L5 and L5-S1. There is no evidence for spinal stenosis or nerve root encroachment at any of these levels or any other level of the lumbar spine. There is no abnormal signal arising from the osseous structures to suggest bone edema or fracture. There is no sign of a paraspinal mass. IMPRESSION: 1. There is mild degenerative disc disease throughout the lumbar spine. The L3-L4 level is the most severely affected but there is no evidence for spinal stenosis or nerve root encroachment at this level. There is no other sign of a high-grade central stenosis or neural foraminal narrowing either. 2. There is no sign of an acute bony abnormality or of a cord lesion. Dictated by: Dictated on workstation # [id number]
== END ==
LOC: RAD 09:18
PROVIDERS: ATTEND Physician Assistant
DX: M51.16 Intervertebral disc disorders with radiculopathy, lumbar region (principal)
CPT/HCPCS: 72148